=== PATIENT | female | born 1970 ===

== ENCOUNTER 2018-05-13 09:40 | Inpatient (IN) | payer OTHER ==
[~2018-05-13] VITALS: Ht 170.2 cm; Wt 55.3 kg
[2018-05-13] MEDS ORDERED: LISINOPRIL20 MG PO (09:54)
[2018-05-13] MEDS ORDERED: BUTALBITAL-ACE1 EAC1 PO (09:54)
[2018-05-17] MEDS ORDERED: ULTRACET PO (14:31)
[2018-05-17] MEDS ORDERED: AMOX1TAB5 PO (14:31)
== END 2018-05-17 17:54 | disposition home or self-care (01) | DRG 340 ==
LOC: ER 09:40 → SURH 23:54 → SEC-K 23:54 → SURH 05-14 01:57
PROVIDERS: Surgery
PROC: BW4GZZZ Ultrasonography of Pelvic Region (ICD-10-PCS; 2018-05-13)
PROC: 0W9G0ZZ Drainage of Peritoneal Cavity, Open Approach (ICD-10-PCS; 2018-05-14)
PROC: 30233N1 Transfusion of Nonautologous Red Blood Cells into Peripheral Vein, Percutaneous Approach (ICD-10-PCS; 2018-05-14)
PROC: BW20ZZZ Computerized Tomography (CT Scan) of Abdomen (ICD-10-PCS; 2018-05-14)
PROC: 0DTJ0ZZ Resection of Appendix, Open Approach (ICD-10-PCS; principal; 2018-05-14 08:00)
DX: K35.33 Acute appendicitis with perforation, localized peritonitis, and gangrene, with abscess (principal); D50.8 Other iron deficiency anemias; D51.8 Other vitamin B12 deficiency anemias; B96.1 Klebsiella pneumoniae [K. pneumoniae] as the cause of diseases classified elsewhere; B96.29 Other Escherichia coli [E. coli] as the cause of diseases classified elsewhere; I10 Essential (primary) hypertension; F32.9 Major depressive disorder, single episode, unspecified; G43.809 Other migraine, not intractable, without status migrainosus